=== PATIENT | female | born 1960 | race Caucasian/White ===

== ENCOUNTER 2022-06-18 15:03 | Outpatient (CLI) | payer OTHER, SELFPAY ==
[2022-06-18 22:00] LABS: Chloride* 104 mmol/L (96-114)
[2022-06-18 22:01] LABS: Potassium* 4.1 mmol/L (3.6-5.1); Sodium* 139 mmol/L (135-149)
[2022-06-18 22:03] LABS: Estimated Glomerular Filt Rate 64 ml/min
[2022-06-18 22:04] LABS: Blood Urea Nitrogen* 13 mg/dL (7-30); Carbon Dioxide* 30 mmol/L (20-32); Glucose* 83 mg/dL (60-115)
== END 2022-06-18 15:04 | disposition home or self-care (01) ==
PROVIDERS: PCP Emergency Medicine; Visit Provider Emergency Medicine
DX: E03.9 Hypothyroidism, unspecified (principal); R73.03 Prediabetes; Z71.3 Dietary counseling and surveillance
CPT/HCPCS: 80048; 84443

== ENCOUNTER 2023-01-04 08:00 | Outpatient (CLI) | payer OTHER, SELFPAY | END 2023-01-04 08:01 | disposition home or self-care (01) | LOC: NFLDREF 01-06 04:11 | PROVIDERS: PCP Emergency Medicine; Referring Provider Emergency Medicine; Visit Provider Emergency Medicine | DX: Z00.00 Encounter for general adult medical examination without abnormal findings (principal); E66.01 Morbid (severe) obesity due to excess calories; R73.03 Prediabetes; E55.9 Vitamin D deficiency, unspecified; E03.9 Hypothyroidism, unspecified; F41.9 Anxiety disorder, unspecified | CPT/HCPCS: 80061 ==

== ENCOUNTER 2024-01-31 09:30 | Outpatient (CLI) | payer BC, SELFPAY ==
--- OUTSIDE RECORDS SUMMARY | 2024-01-31 09:33 | XMS_ITS | Clinical Summary ---
Author Organization [facility] Address [place], [place] [address] Care Team Providers Care Mixing Place Supervisor Name Role Phone Pcp, No Primary Care Provider Unavailabl e Active Problems Problem Noted Date Diagnosed Date DARIAN (obstructive sleep apnea) 02/22/2019 Social History Tobacco Use Types Packs/Day Years Used Date Smoking Tobacco: Never Assessed Sex and Gender Information Value Date Recorded Sex Assigned at Not on file Gender Identity Not on file Sexual Orientation Not on file Plan of Treatment Health Maintenance Due Date Last Done Comments Tdap 09/25/1971 Depression screening for age 12+ 1972 HIV for age 15-65 09/25/1975 BMI (ht and wt on same day) for age 18+ 1978 Hepatitis C screening for ag e 18-79 1978 Tetanus booster 1980 Pap test for age 21-65 1981 Colonoscopy through age 75 2005 Lipids for age 45-75 2005 Zoster (shingles) series for age 50+ (1 of 2) 2010 Mammogram for age 45-75 10/09/2015 10/08/2014 COVID-19 vaccine series (2022-24 season) 2023 Influenza for age 50-64 02/06/2024 Pneumococcal series for age 6-64 Aged Out No longer eligible based on patient's age to complete this topic Procedures Procedure Name Priority Date/Time Associated Diagnosis Comments SCAN-MAMMOGRAPHY REPORT 10/08/2014 12:00 PM CDT from Last 3 Months or Most Recently Relevant to Health Maintenance Results * SCAN-MAMMOGRAPHY REPORT (10/08/2014 12:00 PM CDT) Anatomical Region Laterality Modality Other Narrative 10/11/2014 10:06 AM CDT Procedure Note Scanner - 10/08/2014 12:00 PM CDT Scanner OTHER from Last 3 Months or Most Recently Relevant to Health Maintenance Care Teams Mixing Place Supervisor Relationship Specialty Start Date End Date Pcp, No . PCP - General 10/28/20
--- NOTE | 2024-01-31 09:45 | CRLHL7_ITS ---
For Patients: As a result of the Cures Act, medical imaging exams and procedure reports are released immediately into your electronic medical record. You may view this report before your referring provider. If you have questions, please contact your health care provider. BILATERAL SCREENING MAMMOGRAM WITH COMPUTER-AIDED DETECTION AND TOMOSYNTHESIS TECHNIQUE: CC and MLO views were obtained. These mammographic images have been obtained using full-field digital technique. These mammographic images were interpreted with the benefit of computer-aided detection. Breast Tomosynthesis was used in this interpretation. COMPARISON FILM: 03/27/21, 01/05/19, 08/31/17. FINDINGS: There are scattered areas of fibroglandular density. IMPRESSION: There is no radiographic evidence for malignancy. ASSESSMENT: BI-RADS Category 1: Negative RECOMMENDATION: Routine screening mammogram in 1 year. A lay language report of this examination will be provided to the patient. Charly Cheng M.D. Diagnostic Radiologist [email or web address] SP/Dictated by: Charly Cheng MD @ 02/03/2024 9:51:00 AM SP/Dictated by: Charyl Cheng MD @ 02/03/2024 9:51:00 AM (Electronically Signed)
== END 2024-01-31 09:31 | disposition home or self-care (01) ==
PROVIDERS: Visit Provider Family Medicine
DX: Z12.31 Encounter for screening mammogram for malignant neoplasm of breast (principal)
CPT/HCPCS: 77063; 77067